=== PATIENT | female | born 2000 | race Caucasian/White ===

== ENCOUNTER → 2024-06-18 11:15 | Outpatient (BNV) | payer OTHER, SELFPAY | PROVIDERS: Visit Provider Psychiatry & Neurology Psychiatry | DX: F43.10 Post-traumatic stress disorder, unspecified (principal) | CPT/HCPCS: 90792; 99213 ==

== ENCOUNTER 2024-06-20 08:23 | Outpatient (REF) | payer OTHER, SELFPAY ==
[2024-06-20 08:57] LABS: MANUAL DIFF FLAG NO
[2024-06-20 09:25] LABS: Basophils Percent Auto 0.6 % (0-2); Eosinophils Absolute Auto 0.2 X10*3/uL (0.0-0.4); Eosinophils Percent Auto 3.7 % (0-4); Hemoglobin 13.8 g/dl (12.0-16.0); Imm Gran Abs Auto 0.02 X10*3/uL (0.00-0.03); Imm Gran Pct Auto 0.4 % (0.0-0.4); Lymphocytes Absolute Auto 1.7 X10*3/uL (1.2-4.9); Lymphocytes Percent Auto 31.8 % (20-40); Mean Corpuscular HGB Conc 34.5 g/dl (31.0-35.0); Mean Corpuscular Hemoglobin 29.2 pg (27.0-33.0); Mean Corpuscular Volume 84.6 fL (80.0-98.0); Mean Platelet Volume 10.7 fL (9.4-12.3); Monocytes Absolute Auto 0.4 X10*3/uL (0.1-1.2); Monocytes Percent Auto 6.9 % (2-11); Neutrophils Absolute Auto 3.1 x10*3/uL (2.0-8.3); Neutrophils Percent Auto 56.6 % (45-73); Platelet Count 195 X10*3/uL (160-400); Red Blood Count 4.73 X10*6/uL (4.20-5.50); Red Cell Distribution Width 12.4 % (11.0-16.0); White Blood Count 5.4 X10*3/uL (4.8-10.8)
[2024-06-20 09:44] LABS: Estimated Average Glucose 100 mg/dL; Hemoglobin A1C 112.0632 umol/L; Hemoglobin A1c % 5.1 % (<6.0)
[2024-06-20 10:01] LABS: Erythrocyte Sedimentation Rate 2 MM/HR (0-20)
[2024-06-20 10:08] LABS: Alanine Aminotransferase 15 U/L (0-31); Albumin Level 4.2 g/dL (3.5-5.0); Alkaline Phosphatase 47 U/L (39-117); Anion Gap 12 (12-20); Aspartate Amino Transferase 19 U/L (5-31); Bilirubin Total 0.6 mg/dL (0.0-1.0); Blood Urea Nitrogen 6 mg/dL (9-16); C Reactive Protein < 0.04 mg/dL (< or = 0.50); Calcium 9.4 mg/dL (8.4-10.2); Carbon Dioxide 25 mmol/L (22-29); Chloride 106 mmol/L (96-108); Cholesterol 155 mg/dL (<200); Estimated Glomerular Filt Rate > 60; Glucose Fasting 98 mg/dL (60-99); HDL Cholesterol 62 mg/dL (>40); Iron 92 mcg/dL (30-160); LDL Cholesterol Calculated 82 mg/dL (<100); Magnesium 1.9 mg/dL (1.6-2.6); Percent Iron Saturation 30 % (15-50); Potassium 3.7 mmol/L (3.3-5.1); Sodium 139 mmol/L (135-145); Total Iron Binding Capacity 302 mcg/dL (228-428); Total Protein 7.2 g/dL (6.5-8.0); Triglycerides 57 mg/dL (<150); Unsaturated Iron Binding 210 ug/dL
[2024-06-20 10:42] LABS: Ferritin 12 ng/mL (10-122); Free T4 (Free Thyroxine) 1.01 ng/dL (0.71-1.85); Thyroid Stimulating Hormone 2.03 uIU/mL (0.32-4.0); Vitamin D 25-OH Total 13.6 ng/mL (>30)
[2024-06-20 10:47] LABS: Folate 8.3 ng/mL (> or = 4.0); Vitamin B12 674 pg/mL (200-900)
[2024-06-25 22:42] LABS: Vitamin B1 9 nmol/L (8-30)
[2024-06-26 06:33] LABS: Vitamin B6 15.9 ng/mL (2.1-21.7)
== END 2024-06-20 08:24 | disposition home or self-care (01) ==
LOC: HO.LAB 08:23
PROVIDERS: Visit Provider Psychiatry & Neurology Psychiatry
DX: F33.2 Major depressive disorder, recurrent severe without psychotic features (principal); F41.1 Generalized anxiety disorder
CPT/HCPCS: 36415; 80053; 80061; 82306; 82607; 82728; 82746; 83036; 83540; 83735; 84207; 84425; 84439; 84443; 85025; 85652; 86140

== ENCOUNTER 2024-06-22 09:42 | Emergency (ER) | payer OTHER, SELFPAY ==
[2024-06-22 09:47] VITALS: BP 119/73; PULSE 72; RESP 16; TEMP 36.6; O2SAT 98; BMI 17.9
--- NOTE | 2024-06-22 09:55 | ED_ITS ---
HPI - Psych General Chief Complaint: Psychiatric Symptoms Stated Complaint: crisis Time Seen by Provider: 06/22/24 09:54 Source: patient Mode of arrival: ambulatory Limitations: no limitations History of Present Illness ED Provider: CHRISTIANO LEPE Narrative: 24 yo female with PMH of PTSD, ANGELICA, depression here with c/o SI and HI no AH/VH. She is tearful and crying. She has been here before for this. She reports not taking her meds for 9 days she feels safe where she lives. MD complaint: suicidal ideation, feels depressed and homicidal ideation Onset (ago): week(s) (1) Duration: constant History of same: Yes Relieving factors: none Exacerbating factors: other Context: significant life stressor Associated psychiatric symptoms: none, depression and suicidal ideation Associated symptoms: denies other symptoms If self harm: admits thoughts of self harm and has plan Related Data Home Medications ?Medication ?Instructions ?Recorded ?Confirmed aripiprazole 2 mg tablet 2 mg PO QAM 06/18/24 06/18/24 melatonin 10 mg tablet 10 mg PO BEDTIME PRN Insomnia 06/18/24 06/18/24 Allergies Allergy/AdvReac Type Severity Reaction Status Date / Time gluten AdvReac Constipatio Verified 06/22/24 09:51 n Review of Systems 2 Review of Systems: Constitutional : No Fever, No Chills ENT/Mouth : No Ear Pain, No Nasal Congestion, No sore throat Eyes: No Eye Pain, No Swelling, No Redness Cardiovascular : No Chest Pain, No SOB Respiratory : No Cough, No Sputum, No Dyspnea Gastrointestinal : No Nausea, No Vomiting, No Diarrhea, No Hematochezia, No Melena Genitourinary : No Dysuria, No Urinary Frequency, No Hematuria Musculoskeletal : No Myalgias Skin : No Skin Lesions, No rash Neuro : No Weakness, No Numbness, No Paresthesias, No Dizziness, No Headache Psych : positive Anxiety, positive Depression, positive SI/HI Heme/Lymph: No Lymphadenopathy Endocrine : No Polyuria, No Polydipsia All other systems reviewed and are negative PMFSH Past Medical History Attestation statement: The following information was validated with the patient. Source: old records reviewed Medical History GERD (gastroesophageal reflux disease) Keloid Social History Social History Household Members: None Household Members Other:: 2 Cats Patient Tobacco Use Status: Never used Tobacco Advance Directives: No Advance Directives Information Provided: Yes Do you have a plan to hurt others: No Plan Physical Exam 2 Vital Signs: Vital Signs: Last Vital Signs Temp 98.4 F 06/22/24 10:14 Pulse 91 06/22/24 10:14 Resp 16 06/22/24 10:14 BP 130/104 H 06/22/24 10:14 Pulse Ox 97 06/22/24 10:14 O2 Del Method Room Air 06/22/24 10:14 BMI result Body Mass Index 17.9 Appearance: Alert. Oriented X3. No acute distress. crying and tearful Eyes: Pupils equal, round and reactive to light. ENT: Pharynx normal. Neck: Normal inspection. Neck supple. CVS: Normal heart rate and rhythm. Pulses normal. Respiratory: No respiratory distress. Breath sounds normal. Abdomen: Soft and nontender. Skin: Skin warm and dry. Normal skin color. Normal skin turgor. Extremities: No lower extremity edema. No calf ttp Neuro: Oriented X 3. No motor deficit. No sensory deficit. CN2-12 intact Course Course Course Narrative: observation care revealed that the patient does NOT meet psychiatric necessity for hospitalization. final disposition discussed with the patient. The patient completed observation care at 1138am. in PHP program was sharing feelings and she then was told to come to the ED. Chronic SI no plan. HI which is intrusive thoughts has no plans to hurt anyone, cleared by CARE team UA contaminated no symptoms doubt UTI Medical Decision Making Medical Decision Making MDM Narrative: 24 yo female with PMH of PTSD, ANGELICA, depression here with c/o SI and depression at this time she denies drug use or medical complaints admits to not taking her meds for 9 days. Will obtain basic labs and refer to CARE team. Differential Diagnosis Differential Diagnoses: The differential diagnosis associated with the presentation includes depression, SI Admission/Observation Consideration of admission/observation: Escalation of care including admission/observation considered physician observation started at 956am Consult Healthcare Provider Management of the patient was discussed with: Behavioral Health Provider Lab Data [facility] Lab Attestation statement: I reviewed the patient's lab results. 06/22/24 10:23 06/22/24 10:23 Labs: Lab Results 06/22/24 06/22/24 Range/Units 10:23 10:24 WBC 5.6 (4.8-10.8) X10*3/uL RBC 4.94 (4.20-5.50) X10*6/uL Hgb 14.7 (12.0-16.0) g/dl Hct 40.9 (37.0-47.0) % MCV 82.8 (80.0-98.0) fL MCH 29.8 (27.0-33.0) pg MCHC 35.9 H (31.0-35.0) g/dl RDW 12.4 (11.0-16.0) % Plt Count 199 (160-400) X10*3/uL MPV 10.4 (9.4-12.3) fL Immature Gran % (Auto) 0.7 H (0.0-0.4) % Neut % (Auto) 57.3 (45-73) % Lymph % (Auto) 31.8 (20-40) % Mineral % (Auto) 6.6 (2-11) % Eos % (Auto) 3.2 (0-4) % Baso % (Auto) 0.4 (0-2) % Lymph # (Auto) 1.8 (1.2-4.9) X10*3/uL Mineral # (Auto) 0.4 (0.1-1.2) X10*3/uL Eos # (Auto) 0.2 (0.0-0.4) X10*3/uL Baso # (Auto) 0.0 (0.0-0.2) X10*3/uL Abs Immat Gran (auto) 0.04 H (0.00-0.03) X10*3/uL Absolute Neuts (auto) 3.2 (2.0-8.3) x10*3/uL Absolute Nucleated RBC 0.000 (0.0-0.012) X10*3/uL Nucleated RBC % (auto) 0.0 (0.0-0.2) /100WBC Sodium 138 (135-145) mmol/L Potassium 3.8 (3.3-5.1) mmol/L Chloride 104 (96-108) mmol/L Carbon Dioxide 25 (22-29) mmol/L Anion Gap 12 (12-20) BUN 10 (9-16) mg/dL Creatinine 0.81 (0.5-1.4) mg/dL Estim Creat Clear Calc 99.9 Estimated GFR > 60 Random Glucose 104 (60-115) mg/dL Calcium 9.6 (8.4-10.2) mg/dL Total Bilirubin 0.5 (0.0-1.0) mg/dL Direct Bilirubin 0.2 (0.0-0.5) mg/dL AST 23 (5-31) U/L ALT 20 (0-31) U/L Alkaline Phosphatase 47 (39-117) U/L Total Protein 7.8 (6.5-8.0) g/dL Albumin 4.6 (3.5-5.0) g/dL Beta HCG, Quant < 2 mIU/mL Urine Color Yellow Urine Appearance Clear Urine pH 6.5 (5.0-9.0) Ur Specific [place] 1.010 (1.005-1.025) Urine Protein Negative (Neg-Trace) mg/dL Urine Glucose (UA) Negative (Negative) mg/dL Urine Ketones Negative (Negative) mg/dL Urine Blood Negative (Negative) Urine Nitrite Negative (Negative) Ur Leukocyte Esterase Moderate (2+) H (Negative) Urine RBC 0-2 (0-2) /HPF Urine WBC 6-10 H (0-5) /HPF Ur Squamous Epith Cells 11-20 (0-2) /HPF Urine Bacteria 2+ (None Seen) Hyaline Casts 0-2 (0-2) /LPF Urine Opiates Screen Not Detected (Not Detect) Ur Buprenorphine Scrn Not Detected (Not Detect) ng/mL Ur Oxycodone Screen Not Detected (Not Detect) ng/mL Urine Methadone Screen Not Detected (Not Detect) ng/mL Urine Fentanyl Screen Not Detected (Not Detect) Ur Barbiturates Screen Not Detected (Not Detect) Ur Phencyclidine Scrn Not Detected (Not Detect) Ur Amphetamines Screen Not Detected (Not Detect) U Benzodiazepines Scrn Not Detected (Not Detect) Urine Cocaine Screen Not Detected (Not Detect) U Marijuana (THC) Screen Not Detected (Not Detect) Ethyl Alcohol < 10 mg/dL External Record Review External record reviewed: Inpatient record and Outpatient record Discharge Plan Discharge Clinical Impression: Suicidal ideation Patient Disposition: Home, Self-Care Instructions: Suicide Prevention (ED) Additional Instructions: please follow up with your outpatient providers reutrn for any worsening symptoms or concerns Prescriptions: No Action aripiprazole 2 mg tablet 2 mg PO QAM Patient Comments: Last dose 4-5 days ago. melatonin 10 mg Tablet 10 mg PO BEDTIME PRN (Reason: Insomnia) Print Language: Citizen [place]
[2024-06-22 10:14] VITALS: BP 130/104; PULSE 91; RESP 16; TEMP 36.9; O2SAT 97
[2024-06-22 10:34] LABS: Basophils Percent Auto 0.4 % (0-2); Eosinophils Absolute Auto 0.2 X10*3/uL (0.0-0.4); Eosinophils Percent Auto 3.2 % (0-4); Hematocrit 40.9 % (37.0-47.0); Hemoglobin 14.7 g/dl (12.0-16.0); Imm Gran Abs Auto 0.04 X10*3/uL (0.00-0.03); Imm Gran Pct Auto 0.7 % (0.0-0.4); Lymphocytes Absolute Auto 1.8 X10*3/uL (1.2-4.9); Lymphocytes Percent Auto 31.8 % (20-40); MANUAL DIFF FLAG NO; Mean Corpuscular HGB Conc 35.9 g/dl (31.0-35.0); Mean Corpuscular Hemoglobin 29.8 pg (27.0-33.0); Mean Corpuscular Volume 82.8 fL (80.0-98.0); Mean Platelet Volume 10.4 fL (9.4-12.3); Monocytes Absolute Auto 0.4 X10*3/uL (0.1-1.2); Monocytes Percent Auto 6.6 % (2-11); Neutrophils Absolute Auto 3.2 x10*3/uL (2.0-8.3); Neutrophils Percent Auto 57.3 % (45-73); Platelet Count 199 X10*3/uL (160-400); Red Blood Count 4.94 X10*6/uL (4.20-5.50); Red Cell Distribution Width 12.4 % (11.0-16.0); White Blood Count 5.6 X10*3/uL (4.8-10.8)
[2024-06-22 10:37] LABS: Appearance Urine Clear; Color Urine Yellow; Glucose Urine UA Negative (Negative); Leukocyte Esterase Urine Moderate (2+) (Negative); Nitrite Urine Negative (Negative); PH 6.5 (5.0-9.0); UMIC TRIGGER UACC YES; Urine Blood Negative (Negative); Urine Ketones Negative (Negative); Urine Protein Negative (Neg-Trace)
[2024-06-22 10:40] LABS: Bacteria Urine 2+ (None Seen); Hyaline Casts Urine 0-2 /LPF (0-2); RBC Urine 0-2 /HPF (0-2); UACC Culture Trigger YES
[2024-06-22 10:51] LABS: Amphetamine Screen Urine Not Detected (Not Detect); Barbiturates, Urine Not Detected (Not Detect); Benzodiazepines Screen Urine Not Detected (Not Detect); Buprenorphine Scr Not Detected (Not Detect); Cannabinoid Screen Urine Not Detected (Not Detect); Cocaine Screen Urine Not Detected (Not Detect); Fentanyl, urine Not Detected (Not Detect); Methadone Screen, Urine Not Detected (Not Detect); Opiate Screen Urine Not Detected (Not Detect); Oxycodone Screen Urine Not Detected (Not Detect); Phencyclidine Screen Urine Not Detected (Not Detect)
[2024-06-22 11:13] LABS: Alanine Aminotransferase 20 U/L (0-31); Albumin Level 4.6 g/dL (3.5-5.0); Alkaline Phosphatase 47 U/L (39-117); Aspartate Amino Transferase 23 U/L (5-31); Bilirubin Direct 0.2 mg/dL (0.0-0.5); Bilirubin Total 0.5 mg/dL (0.0-1.0); Blood Urea Nitrogen 10 mg/dL (9-16); Calcium 9.6 mg/dL (8.4-10.2); Chloride 104 mmol/L (96-108); Creatinine Clr Calc Pharmacy 99.9; Estimated Glomerular Filt Rate > 60; Ethanol < 10 mg/dL; Glucose Random 104 mg/dL (60-115); HCG Quantitative < 2 mIU/mL; Potassium 3.8 mmol/L (3.3-5.1); Sodium 138 mmol/L (135-145); Total Protein 7.8 g/dL (6.5-8.0)
[2024-06-22 11:14] LABS: Anion Gap 12 (12-20); Carbon Dioxide 25 mmol/L (22-29)
--- NOTE | 2024-06-22 11:57 | MHC.CARE ---
Pt does not present as an imminent risk or meet the criteria for a higher level of care. Pt stated that she experiences suicidal thoughts at baseline and although stated she has plans at times never has any intent to act on them. She also denied HI, and stated I have intrusive thoughts at times which is why I am at [facility] . Pt was upset that she was not told she would be coming into a locked behavioral health pod. She is future oriented and wishes to resume the PHP program. Pt is cleared by the CARE team. Dr. Rina Rivera in agreement.
[2024-06-22 12:26] VITALS: BP 99/63; PULSE 73; RESP 16; TEMP 36.7; O2SAT 98
--- NOTE | 2024-06-22 12:26 | PC.NURSE ---
Per Care Team, Pt has been cleared and will be d/c'd back to her partial program today.
== END 2024-06-22 12:27 | disposition home or self-care (01) ==
PROVIDERS: Emergency Provider Emergency Medicine
DX: R45.851 Suicidal ideations (principal); R45.850 Homicidal ideations; F33.2 Major depressive disorder, recurrent severe without psychotic features; F43.10 Post-traumatic stress disorder, unspecified; F34.1 Dysthymic disorder; Z79.899 Other long term (current) drug therapy
CPT/HCPCS: 36415; 80048; 80076; 80307; 81001; 84702; 85025; 87086; 99284; S9485

== ENCOUNTER 2024-07-06 11:15 | Outpatient (RCR) | payer OTHER, SELFPAY ==
--- NOTE | 2024-06-15 12:06 | HO.PS.ADMBH ---
HPI Date of Service: 06/15/24 Chief Complaint: MDD,PTSD Meds/Allergies Allergies Allergies Allergy/AdvReac Type Severity Reaction Status Date / Time Unable to Assess Allergy Verified 06/16/24 00:08 Assessment & Plan Certification I certify that partial hospital treatment is medically necessary due to the symptoms and problems resulting from the patient's mental illness and the failure to treat the patient at the partial hospital level of care would likely result in the patient requiring inpatient psychiatric care which could not be prevented at a less intensive level of care. Time Spent With Patient Time: Total time managing care of this patient today ____ minutes.
[2024-06-18 11:53] VITALS: BP 92/60; PULSE 76; TEMP 37.4
[2024-06-18 11:56] VITALS: BMI 17.6
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
--- NOTE | 2024-06-21 14:40 | HO.PHP ---
Client's case has been opened and reviewed in team.
--- NOTE | 2024-06-22 09:27 | PC.NURSE ---
Sherine told staff [facility] member November that she wanted to go to crisis for an evaluation as she has a plan to jump off a bridge near her home. Dr. Irizarry and Margarita Mendez are aware. Maria A [facility] staff will escort patient to the ER for a crisis evaluation. Care team notified by Margarita. Nurse to Nurse done with ER charge nurse Zuleyka and POD nurse Sofie REYES.
--- NOTE | 2024-06-25 13:52 | HO.PHP ---
[facility] staff member assisted Sherine with aftercare planning by following up with [place] to see who she is transferred to for med management and to schedule an appointment. Sherine has an appointment scheduled on July 18, 2024 at 2 PM, in person, with Dr. Camarillo in [place], [place].
--- NOTE | 2024-06-28 13:42 | HO.PHPPROGNO ---
Subjective Subjective Date of Service: 06/28/24 Reason For Visit: MDD,PTSD Interim History: Pt reports PHP is going okay. She reports chronic intermittent suicidal thought since she was 11. She denies any recent self harm behaviors or urges to do so. She asks about medications and report she would like to consider medications at time. She reports multiple side effects with past antidepressant and also with abilify. We discussed option of mood stabilizer to address mood (like lamictal) or trying different antidepressant class such as SNRI like venlafaxine first. She would like to try venlafaxine. Past medication trials: lexapro, abilify, sertraline. Mental Status Exam Mental Status Exam Narrative: Appearance: wearing casual clothing, good hygiene, in NAD behavior: cooperative Psychomotor: no agitation or retardation noted Speech: clear, normal rate/rhythm/volume, spontaneous TP; linear TC: future oriented Mood: okay Affect: congruent, brightens up SI: denies HI: denies VH/AH: none Delusions: none Insight/judgment: fair x 2. memory/cog: alert, oriented x 3. grossly intact to conversational testing. Diagnostics Vital Signs (24Hr): BMI result Body Mass Index 17.6 Assessment & Plan Assessment & Plan (1) Post traumatic stress disorder (PTSD): Status: Acute Code(s): F43.10 - Post-traumatic stress disorder, unspecified Assessment and Plan: I would consider ruling out Borderline Personality Disorder as well as mood d/o Plan Ms. Onofre reports chronic suicidality and SIB since age 11. No urges to self harm. She is now interested in starting medications, despite initially telling psychiatrist medications did not work for her and had many side effects. Her presentation seems consistent with possible more characteriological, axis 2. We discussed medication options. She agreed to try different class of antidepressants like an SNRI. Sent RX for Effexor XR 37.5mg po daily. Certification I certify that partial hospital treatment is medically necessary due to the symptoms and problems resulting from the patient's mental illness and the failure to treat the patient at the partial hospital level of care would likely result in the patient requiring inpatient psychiatric care which could not be prevented at a less intensive level of care. Total time managing care of this patient today ____ minutes. Discharge Plan Discharge Attending provider: Patenaude,Daniela Medications: New ergocalciferol (vitamin D2) [Vitamin D2] 1,250 mcg (50,000 unit) capsule 1,250 mcg PO QWEEK Qty: 14 0RF thiamine HCl (vitamin B1) 100 mg tablet 100 mg PO BID Qty: 60 1RF venlafaxine [Effexor XR] 37.5 mg capsule,extended release 24hr 37.5 mg PO DAILY Qty: 10 0RF Continued melatonin 10 mg Tablet 10 mg PO BEDTIME PRN (Reason: Insomnia) Discontinued aripiprazole 2 mg tablet 2 mg PO QAM Patient Comments: Last dose 4-5 days ago. Print Language: Vietnamese
--- NOTE | 2024-07-02 08:26 | HO.PHP ---
PHP admin, Eliana, informed the group that Sherine will not be in attendance to program today because she is not feeling well. No safety concerns were presented.
--- NOTE | 2024-07-06 23:04 | P.PNPSP_ITS ---
Subjective Subjective Date of Service: 07/06/24 Reason For Visit: MDD,PTSD Interim History: Patient seen for follow-up, anticipating discharge at the end of program today.? Reports no acute issues or concerns. Medication compliant, medications well- tolerated. Denies any adverse effects.? Mood is stable.? Denies any hopelessness or SI. Denies thoughts of harming self or others at this time. Denies any aggressive ideation or HI. Denies any paranoia or AH or VH. Sleep, appetite, energy stable. Alert, oriented, in no acute distress. Calm, cooperative. Mood stable, affect appropriate. Speech normal. Thought process linear, coherent, more goal- directed. Thought content related to stressors, future-oriented, denies any helplessness, hopelessness or SI.? No aggressive ideation or HI. No paranoia or delusional content elicited. No evidence of psychosis. Insight and judgment fair-good. Discharge from [facility] Continue regular medications Refills sent to pharmacy Will defer further medication management to outpatient provider *Safety plan reviewed *Discharge diagnoses, treatment course, discharge plan have been reviewed with patient (including medication regime, medication management, potential side effects) as well as treatment rationale were also revisited *Discharge paperwork signed and given to patient, copy sent for scanning to chart Diagnostics Vital Signs (24Hr): BMI result Body Mass Index 17.6 Assessment & Plan Certification I certify that partial hospital treatment is medically necessary due to the symptoms and problems resulting from the patient's mental illness and the failure to treat the patient at the partial hospital level of care would likely result in the patient requiring inpatient psychiatric care which could not be prevented at a less intensive level of care. Total time managing care of this patient today ____ minutes. Discharge Plan Discharge Attending provider: Daniela Irizarry Medications: New ergocalciferol (vitamin D2) [Vitamin D2] 1,250 mcg (50,000 unit) capsule 1,250 mcg PO QWEEK Qty: 14 0RF thiamine HCl (vitamin B1) 100 mg tablet 100 mg PO BID Qty: 60 1RF Continued melatonin 10 mg Tablet 10 mg PO BEDTIME PRN (Reason: Insomnia) venlafaxine [Effexor XR] 37.5 mg capsule,extended release 24hr 37.5 mg PO DAILY Qty: 30 0RF Discontinued aripiprazole 2 mg tablet 2 mg PO QAM Patient Comments: Last dose 4-5 days ago. Stand Alone Forms: Patient Portal Discharge page Print Language: Telugu
== END 2024-07-06 23:59 | disposition home or self-care (01) ==
LOC: HO.PHPA 11:15
PROVIDERS: Visit Provider Psychiatry & Neurology Psychiatry
DX: F33.2 Major depressive disorder, recurrent severe without psychotic features (principal); F39 Unspecified mood [affective] disorder; F43.10 Post-traumatic stress disorder, unspecified; F41.1 Generalized anxiety disorder
CPT/HCPCS: 90791; 90853